=== PATIENT | male | born 1965 | race Two or more races ===

== ENCOUNTER 2019-10-23 21:53 | Inpatient (IN) | payer OTHER, MEDICAID ==
[~2019-10-23] VITALS: Ht 172.7 cm; Wt 72.6 kg
[2019-10-23] MEDS ORDERED: LORAZEPAM 2MG/ML CPJ IV ONE (22:30)
[2019-10-23] MEDS ORDERED: MIDAZOLAM HCL 2 MG/2 ML VIAL ONE (22:32)
[2019-10-23] MEDS ORDERED: DEXTROSE 50% WATER 50ML SYRINGE IV ONE ×2 (22:36→22:45)
[2019-10-23 23:07] LABS: HEMATOCRIT. 32.1 % (42.0-52.0); LYMPHOCYTES % 36.9 % (20.0-50.0); MEAN CORPUSCULAR HEMOGLOBIN 30.7 pg (28.0-32.0); MEAN CORPUSCULAR VOLUME 89.9 fL (80.0-94.0); MEAN PLATELET VOLUME 6.4 fl (7.4-10.4); MONOCYTES % 6.1 % (2.0-8.0); PLATELET 122 x1000/uL (130-400); RED BLOOD CELL COUNT 3.57 mill/uL (4.7-6.1); RED CELL DISTRIBUTION WIDTH 16.4 % (11.6-14.6)
[2019-10-23 23:15] LABS: CHLORIDE 105 mEq/L (98-107)
[2019-10-23 23:19] LABS: ETHANOL BLOOD < 10 mg/dL
[2019-10-24 00:37] LABS: CLARITY URINE CLEAR (CLEAR); COLOR URINE YELLOW (YELLOW); KETONES URINE NEGATIVE (NEGATIVE); LEUKOCYTE ESTERASE URINE NEGATIVE (NEGATIVE); NITRITE URINE NEGATIVE (NEGATIVE); OCCULT BLOOD URINE TRACE (NEGATIVE); PROTEIN URINE 2+ (NEGATIVE); SPECIFIC GRAVITY URINE 1.012 (1.005-1.030); UROBILINOGEN URINE 0.2 E.U./dL (0.2-1.0)
[2019-10-24 00:49] LABS: *AMPHETAMINES SCREEN URINE NEGATIVE (NEGATIVE); *BARBITURATES SCREEN URINE NEGATIVE (NEGATIVE); CANNABINOID URINE SCREEN NEGATIVE (NEGATIVE); PHENCYCLIDINE URINE SCREEN NEGATIVE (NEGATIVE)
[2019-10-24 00:50] LABS: *BENZODIAZEPINES SCREEN URINE PRESUMTIVE POSITIVE (NEGATIVE); *COCAINE SCREEN URINE NEGATIVE (NEGATIVE); METHADONE URINE SCREEN NEGATIVE (NEGATIVE); OPIATES URINE SCREEN PRESUMTIVE POSITIVE (NEGATIVE)
[2019-10-24] MEDS ORDERED: LACTULOSE 20G/30ML UDC PO NR (01:00)
[2019-10-24] MEDS ORDERED: SODIUM CHLORIDE 0.9% 1,000 ML IV ONE (01:30)
[2019-10-24] MEDS ORDERED: KETOROLAC 30MG/ML VIAL IV NR (01:45)
[2019-10-24] MEDS: MORPHINE SULFATE 2 MG/ML CPJ (NOT FOR IM USE) IV PRN ×3 (04:17→20:43)
[2019-10-24] MEDS: CLONIDINE 0.1MG TABLET PO PRN ×2 (04:18→11:57)
[2019-10-24 08:42] VITALS: BP 179/105
[2019-10-24 09:00] VITALS: BP 179/105
[2019-10-24] MEDS ORDERED: HYDROCODONE/ACETAMINOPHEN 5/325MG TABLET PO PRN (11:00)
[2019-10-24] MEDS ORDERED: ACETAMINOPHEN 650MG SUPP PR PRN (11:00)
[2019-10-24] MEDS ORDERED: IPRATROPIUM/ALBUTEROL 0.5-3(2.5)MG/3ML NEB NEB PRN (11:00)
[2019-10-24] MEDS ORDERED: DOCUSATE SODIUM 100MG CAPSULE PO PRN (11:00)
[2019-10-24] MEDS ORDERED: CLONIDINE 0.1MG TABLET PO PRN (11:00)
[2019-10-24] MEDS ORDERED: GUAIFENESIN 200MG/10ML SUGAR FREE UDC PO PRN (11:00)
[2019-10-24] MEDS ORDERED: ONDANSETRON HCL 4MG/2ML INJ IV PRN (11:00)
[2019-10-24] MEDS ORDERED: DIPHENHYDRAMINE 50MG/ML VIAL IV PRN (11:00)
[2019-10-24] MEDS ORDERED: MAGNESIUM/ALUMINUM HYDROXIDE/SIMETHICONE 30ML UDC PO PRN (11:00)
[2019-10-24] MEDS ORDERED: NA PHOS,M-B/NA PHOS,DI-BA ENEMA 118ML PR PRN (11:00)
[2019-10-24] MEDS ORDERED: LORAZEPAM 2MG/ML CPJ IV PRN (11:00)
[2019-10-24] MEDS ORDERED: ACETAMINOPHEN 650MG/20.3ML UDC GT PRN (11:00)
[2019-10-24] MEDS ORDERED: DEXTROSE 50% WATER 50ML SYRINGE IV PRN (11:45)
[2019-10-24 12:00] VITALS: BP 172/99
[2019-10-24] MEDS ORDERED: THIAMINE HCL 100MG TABLET PO SCH (12:00)
[2019-10-24] MEDS ORDERED: MULTIVITAMINS,THER W-MINERALS TABLET PO SCH (12:00)
[2019-10-24] MEDS: BLOOD SUGAR DIAGNOSTIC STRIP TEST SCH ×2 (12:20→16:48)
[2019-10-24 12:46] LABS: CHLORIDE 110 mEq/L (98-107)
[2019-10-24 12:49] LABS: INR 1.1; PROTHROMBIN TIME 11.1 sec (9.6-11.0)
[2019-10-24] MEDS: INSULIN LISPRO 100 UNITS/ML SUBCUT SCH ×2 (12:50→17:07)
[2019-10-24] MEDS ORDERED: LEVETIRACETAM 500MG PREMIX 100 ML IV SCH (13:00)
[2019-10-24 13:12] LABS: HEPATITIS B SURFACE ANTIGEN NEGATIVE
[2019-10-24 13:15] LABS: HEMATOCRIT. 32.4 % (42.0-52.0); MEAN CORPUSCULAR HEMOGLOBIN 29.7 pg (28.0-32.0); MEAN CORPUSCULAR VOLUME 87.2 fL (80.0-94.0); PLATELET 91 x1000/uL (130-400); RED BLOOD CELL COUNT 3.72 mill/uL (4.7-6.1); RED CELL DISTRIBUTION WIDTH 15.7 % (11.6-14.6)
[2019-10-24 13:42] LABS: HEPATITIS A AB IGM NEGATIVE (NEGATIVE)
[2019-10-24] MEDS ORDERED: AMLODIPINE 5MG TABLET PO SCH (14:00)
[2019-10-24 16:00] VITALS: BP 152/97
[2019-10-24] MEDS ORDERED: FOLI-43 MT (16:05)
[2019-10-24] MEDS ORDERED: KEPP500 MT (16:05)
[2019-10-24] MEDS ORDERED: MULT-1146 MT (16:05)
[2019-10-24] MEDS ORDERED: THIA100T72 MT (16:05)
[2019-10-24] MEDS ORDERED: AMLO5TAB4 MT (16:05)
[2019-10-24 17:23] LABS: PLATELET ESTIMATE DECREASED
[2019-10-24 17:29] LABS: CREATINE KINASE 39 IU/L (39-308)
[2019-10-24 17:30] LABS: CREATINE KINASE MB FRACTION 1.4 ng/mL (0.5-3.6)
[2019-10-24 20:00] VITALS: BP 124/83
[2019-10-24 21:58] VITALS: BP 124/83
[2019-10-25] MEDS ORDERED: ASPIRIN 81MG EC TABLET PO SCH (09:00)
[2019-10-25] MEDS ORDERED: FOLIC ACID 1MG TABLET PO SCH (09:00)
== END 2019-10-24 23:15 | disposition home or self-care (01) | DRG 53 ==
LOC: ER 21:53 → 6WST 10-24 02:44 → EDBEDREQ 10-24 02:48 → EDBEDREQTM 10-24 02:48 → ENRESERV 10-24 08:03 → 6WST 10-24 11:03
PROVIDERS: ADMIT Internal Medicine; ATTEND Internal Medicine
DX: G40.409 Other generalized epilepsy and epileptic syndromes, not intractable, without status epilepticus (principal); N17.9 Acute kidney failure, unspecified; D69.6 Thrombocytopenia, unspecified; E72.20 Disorder of urea cycle metabolism, unspecified; E11.649 Type 2 diabetes mellitus with hypoglycemia without coma; E88.09 Other disorders of plasma-protein metabolism, not elsewhere classified; Z86.74 Personal history of sudden cardiac arrest; R74.0 Nonspecific elevation of levels of transaminase and lactic acid dehydrogenase [LDH]; D64.9 Anemia, unspecified; I10 Essential (primary) hypertension; I25.2 Old myocardial infarction; Z79.4 Long term (current) use of insulin; E44.0 Moderate protein-calorie malnutrition
CPT/HCPCS: 36415; 70551; 76700; 80053; 80305; 80320; 81003; 82140; 82550; 82553; 82962; 83036; 84443; 84484; 85007; 85025; 85027; 86705; 86709; 86803; 87340; 93005; 93306; 93880; 97162; 99291; J1815; J1885; J1953; J2060; J2250; J2270; G0480